=== PATIENT | female | born 1990 | race African-American/Black ===

== ENCOUNTER 2017-06-01 10:40 | Emergency (ER) | payer OTHER ==
[2017-06-01 10:47] VITALS: BMI 40.2
--- NOTE | 2017-06-01 11:19 | PDOC ---
History of Present Illness - General Chief Complaint: Headache Stated Complaint: HEADACH/NAUSEA Time Seen by Provider: 06/01/17 11:03 Past History - Past Medical History Allergies/Adverse Reactions: Allergies Allergy/AdvReac Type Severity Reaction Status Date / Time No Known Allergies Allergy Verified 06/01/17 10:47 Home Medications: Ambulatory Orders Albuterol Sulfate Inhaler - [Ventolin Hfa Inhaler -] 1 - 2 inh PO Q4H 06/01/17 Diphenhydramine HCl [Benadryl -] 25 mg PO HS #10 capsule 06/01/17 Ibuprofen 800 mg PO TID #30 tablet 06/01/17 Ondansetron [Zofran Odt -] 4 mg SL TID #10 od.tablet 06/01/17 COPD: No - Reproductive History (#): 5 Therapeutic (s) & number: Yes (5 elective) - Suicide/Smoking/Psychosocial Hx Smoking History: Never smoked Have you smoked in the past 12 months: No Number of Cigarettes Smoked Daily: 4 Information on smoking cessation initiated: No 'Breaking Loose' booklet given: 02/21/14 Hx Alcohol Use: No Drug/Substance Use Hx: No Substance Use Type: None *Physical Exam - Vital Signs Last Vital Signs Temp Pulse Resp BP Pulse Ox 98.4 F 65 18 129/73 100 06/01/17 10:43 06/01/17 10:43 06/01/17 10:43 06/01/17 10:43 06/01/17 10:43 ED Treatment Course - LABORATORY CBC & Chemistry Diagram: 06/01/17 12:12 06/01/17 12:12 *DC/Admit/Observation/Transfer Diagnosis at time of Disposition: Migraine Qualifiers: Migraine type: other Status migrainosus presence: without status migrainosus Intractability: not intractable Qualified Code(s): G43.809 - Other migraine, not intractable, without status migrainosus - Discharge Dispostion Disposition: HOME Condition at time of disposition: Stable Admit: No - Prescriptions Prescriptions: Ibuprofen 800 mg PO TID #30 tablet Ondansetron [Zofran Odt -] 4 mg SL TID #10 od.tablet - Referrals Referrals: Ronda Brush MD [Primary Care Provider] - Bijan Alarcon DO [Staff Physician] - - Patient Instructions Printed Discharge Instructions: DI for Migraine Additional Instructions: You have a migraine. These can last a couple of days. Please take ibuprofen 800 mg every 8 hours as needed for headaches. I would take them scheduled the next couple of days distally her headache resolves. Your also prescribe Zofran. This is for nausea. You may take this every 8 hours. Please drink plenty of fluids and get plenty of rest. If you need help sleeping at night, take Benadryl 25 mg for [address] not drive after taking it as it may make you sleepy. Please follow- up with neurology within the week if your symptoms do not resolve. A referral has been provided for you Return to the emergency department if you have worsening pain, dizziness, lightheadedness, changes in her vision, or any changes in her symptoms. - Post Discharge Activity Forms/Work/School Notes: Back to Work
[2017-06-01] MEDS ORDERED: SODIUM CHLORIDE 1,000 ML IV STA (11:20)
[2017-06-01] MEDS ORDERED: ONDANSETRON 4 MG/2 ML VIAL IVPUSH ONE (11:20)
[2017-06-01] MEDS ORDERED: METOCLOPRAMIDE HCL INJECTION 10 MG/2 ML VIAL IVPB ONE (11:20)
[2017-06-01] MEDS ORDERED: ONDANSETRON 4 MG/2 ML VIAL ONE (11:52)
[2017-06-01] MEDS ORDERED: METOCLOPRAMIDE HCL INJECTION 10 MG/2 ML VIAL ONE (11:52)
[2017-06-01 12:32] LABS: BASO % 0.8 % (0-2.0); EOS % 0.2 % (0-4.5); HEMATOCRIT 38.5 % (32.4-45.2); HEMOGLOBIN 12.2 GM/dL (10.7-15.3); LYMPH % 35.7 % (8-40); MCHC 31.7 g/dl (32.0-36.0); MEAN CELL VOLUME 81.9 fl (80-96); MEAN PLT VOLUME 9.2 fl (7.5-11.1); MONO % 13.6 % (3.8-10.2); NEUT % 49.7 % (42.8-82.8); PLATELET COUNT 270 K/MM3 (134-434); RDW 13.6 % (11.6-15.6); WHITE BLOOD COUNT 5.5 K/mm3 (4.0-10.0)
[2017-06-01 12:38] LABS: HCG,QUALITATIVE URINE NEGATIVE; URINE APPEARANCE CLEAR; URINE BILIRUBIN NEGATIVE (NEGATIVE); URINE BLOOD NEGATIVE (NEGATIVE); URINE COLOR LTYELLOW; URINE GLUCOSE (UA) NEGATIVE (NEGATIVE); URINE KETONE NEGATIVE (NEGATIVE); URINE LEUK ESTERASE NEGATIVE (NEGATIVE); URINE NITRITE NEGATIVE (NEGATIVE); URINE PROTEIN NEGATIVE (NEGATIVE)
[2017-06-01 12:51] LABS: ALBUMIN 3.6 g/dl (3.4-5.0); ALK PHOS 67 U/L (45-117); ANION GAP 9 (8-16); BILIRUBIN,TOTAL 0.5 mg/dL (0.2-1.0); BLOOD UREA NITROGEN 9 mg/dL (7-18); CALCIUM 9.1 mg/dL (8.5-10.1); CHLORIDE 101 mmol/L (98-107); CO2 27 mmol/L (21-32); CREATININE 0.7 mg/dL (0.55-1.02); GLUCOSE,RANDOM 87 mg/dL (74-106); POTASSIUM 3.7 mmol/L (3.5-5.1); SGOT/AST 16 U/L (15-37); SGPT/ALT 15 U/L (12-78); SODIUM 137 mmol/L (136-145); TOT PROT 7.3 g/dl (6.4-8.2)
[2017-06-01] MEDS ORDERED: KETOROLAC TROMETHAMINE 30 MG/1 ML VIAL IVPUSH ONE (15:17)
[2017-06-01] MEDS ORDERED: KETOROLAC TROMETHAMINE 30 MG/1 ML VIAL ONE (15:24)
[2017-06-01 15:43] VITALS: BP 125/63; PULSE 54; TEMP 98.9
== END 2017-06-01 16:55 | disposition home or self-care (01) ==
LOC: JER 10:40
PROC: 3E033GC Introduction of Other Therapeutic Substance into Peripheral Vein, Percutaneous Approach (ICD-10-PCS; principal; 2017-06-01)
PROC: 3E0333Z Introduction of Anti-inflammatory into Peripheral Vein, Percutaneous Approach (ICD-10-PCS; 2017-06-01)
PROC: 3E033GC Introduction of Other Therapeutic Substance into Peripheral Vein, Percutaneous Approach (ICD-10-PCS; 2017-06-01)
PROC: 3E033GC Introduction of Other Therapeutic Substance into Peripheral Vein, Percutaneous Approach (ICD-10-PCS; 2017-06-01)
DX: G43.809 Other migraine, not intractable, without status migrainosus (principal)
CPT/HCPCS: 36415; 80053; 81003; 84703; 85025; 96374; 96375; 99282-25

== ENCOUNTER 2020-02-13 10:21 | Emergency (ER) | payer SELFPAY ==
[2020-02-13 10:29] VITALS: BP 150/91; PULSE 90; TEMP 98.3; BMI 36.6
--- NOTE | 2020-02-13 10:37 | PDOC ---
History of Present Illness - General Chief Complaint: Cold Symptoms Stated Complaint: COLD SYMPTOMS Time Seen by Provider: 02/13/20 10:33 Past History - Medical History Allergies/Adverse Reactions: Allergies Allergy/AdvReac Type Severity Reaction Status Date / Time No Known Allergies Allergy Verified 02/13/20 10:24 Home Medications: Ambulatory Orders Albuterol Sulfate Inhaler - [Ventolin Hfa Inhaler -] 1 - 2 inh PO Q4H 06/01/17 Diphenhydramine HCl [Benadryl -] 25 mg PO HS #10 capsule 06/01/17 Ibuprofen 800 mg PO TID #30 tablet 06/01/17 Ondansetron [Zofran Odt -] 4 mg SL TID #10 od.tablet 06/01/17 COPD: No - Reproductive History Is Patient Now?: No (#): 5 Therapeutic (s) & number: Yes (5 elective) - Psycho-Social/Smoking History Smoking History: Never smoked Have you smoked in the past 12 months: No Number of Cigarettes Smoked Daily: 4 'Breaking Loose' booklet given: 02/21/14 - Substance Abuse Hx (Audit-C & DAST Scrn) How often the patient has a drink containing alcohol: Never Score: In Men: 4 or > Positive; In Women: 3 or > Positive: 0 Screen Result (Pos requires Nsg. Audit-10AR): Negative In the last yr the pt used illegal drug/Rx for NonMed reason: No Score: Yes response is considered Positive: 0 Screen Result (Positive result requires Nsg. DAST-10): Negative *Physical Exam - Vital Signs Last Vital Signs Temp Pulse Resp BP Pulse Ox 98.3 F 90 18 150/91 100 02/13/20 10:25 02/13/20 10:25 02/13/20 10:25 02/13/20 10:25 02/13/20 10:25 Medical Decision Making - Medical Decision Making 02/13/20 11:06 HPI: COVID-19 CDC guideline data points: The patient is a 29 y/o M presents with COVID-19 with associated symptoms of loss of sense of taste and smell for the past three days. She was tested for COVID yesterday and is waiting on results. ROS: PRESENT: ansomnia NEGATIVE: difficulty breathing, shortness of breath, chest pain, lightheadedness, dizziness, nausea, vomiting and diarrhea. Other 12 point ROS reviewed and negative. Exam: General: NAD, Well-Appearing, Awake, Alert Oriented x3. Vital signs stable. ENT: No rhinorrhea or nasal congestion. Neck: FROM, no midline tenderness. Lungs: Clear to auscultation bilaterally without wheezes, rhonchi or rales. Normal excursion. Patient is able to speak in full sentences. Heart: HR: Regular rhythm, S1-S2 present, no murmurs rubs or gallops. Abdomen: Non-distended. MSK/Extremities: No decrease ROM, No obvious deformities. No obvious cyanosis noted. Neuro: Normal Gait, Cranial Nerves II through XII Grossly Intact. Skin: No obvious rashes, bruising. Color Normal Appearing. Assessment/Plan: ansomnia Patient has a history of this/these comorbidities: asthma No known COVID exposure Pt pending COVID Swab from another facility VSS, afebrile Exam benign DC home with strict precautions. [facility] isolation precuations given. ASSESSMENT: Denies recent travel and known Covid exposure. Discharge - Discharge Information Problems reviewed: Yes Clinical Impression/Diagnosis: Anosmia, Suspected COVID-19 virus infection Condition: Stable Disposition: HOME - Admission No - Follow up/Referral Referrals: [facility] [Provider Group] - Patient Discharge Instructions Patient Printed Discharge Instructions: [facility] - Coronavirus Instructions, [facility]- [facility] COVID-19 Isolation Protocol Additional Instructions: You were seen for your loss of sense of taste and smell and possible Coronavirus (COVID-19) Stay home and isolate until you receive your COVID results. Take Tylenol 650 mg every 6 hours as needed for fever or pain. You may take Robitussin or other aeeq-pcf-prlhblf cough syrup. Follow the dosing instructions on the bottle. Warm tea, honey, and salt water gargles may help your symptoms. Please take precautions and self quarantine for 2 weeks and follow-up with your primary care doctor and the Department of Health. Return to the nearest emergency department for shortness of breath, difficulty breathing, chest pain, or if you have any changes in your symptoms. - Post Discharge Activity Work/Back to School Note: Back to Work
--- OUTSIDE RECORDS SUMMARY | 2020-02-13 10:42 | XMS ---
:1990 Author Organization [facility] Support Name Relationship Address Phone UE Unavailable Unavailable Unavailable JULIO CESAR BLANCHARD MOTHER [address] [phone] [place] [address] ELKIN GARCIA Unavailable [address] [place] [address] Re-disclosure Warning The records that you are about to access may contain information from federally- assisted alcohol or drug abuse programs. If such information is present, then the following federally mandated warning applies: This information has been disclosed to you from records protected by federal confidentiality rules (42 CFR part 2). The federal rules prohibit you from making any further disclosure of this information unless further disclosure is expressly permitted by the written consent of the person to whom it pertains or as otherwise permitted by 42 CFR part 2. A general authorization for the release of medical or other information is NOT sufficient for this purpose. The Federal rules restrict any use of the information to criminally investigate or prosecute any alcohol or drug abuse patient.The records that you are about to access may contain highly sensitive health information, the redisclosure of which is protected by Article 27-F of the [facility] Public Health law. If you continue you may haveaccess to information: Regarding HIV / AIDS; Provided by facilities licensed or operated by the [facility] Office of Mental Health; or Provided by the [facility] Office for People With Developmental Disabilities. If such information is present, then the following [facility] mandated warning applies: This information has been disclosed to you from confidential records which are protected by state law. State law prohibits you from making any further disclosure of this information without the specific written consent of the person to whom it pertains, or as otherwise permitted by law. Any unauthorized further disclosure in violation of state law may result in a fine or [place] health [facility] sentence or both. A general authorization for the release of medical or other information is NOT sufficient authorization for further disclosure. Medications Medication Brand Start Product Dose Route Administrative Pharmacy [facility] Indications Reaction Description Data Name Date Form Instructions Instructions Source(s) Vitamin D UNK 1.0 active Vitamin D e CW3 (Ergocalcif 2018 {caps (Ergocalcife ([place]) 74701 12:00: ule} rol) [address] UNIT 00 AM UNIT Health EDT Care) Insurance Providers Payer name Policy type Policy ID Covered Covered constitution party's Policy P baldo / Coverage constitution party ID relationship to Jones Inf ormation type jones SELF PAY SP INSURANCE Patient Treatment Plan of Care Planned Activity Planned Date Details Description Data Source (s) Vitamin D 07/31/2018 12:00:00 eCW3 ([place] (Ergocalciferol) [address] AM EDT Healt Care) UNIT
== END 2020-02-13 11:30 ==
LOC: JER 10:21
DX: R43.0 Anosmia (principal)
CPT/HCPCS: 99283-25

== ENCOUNTER 2020-06-19 15:23 | Emergency (ER) | payer OTHER ==
[2020-06-19 15:29] VITALS: TEMP 98.2; BMI 30.2
[2020-06-19] MEDS ORDERED: SODIUM CHLORIDE 0.9% 500 ML INFUS.BAG IV ONE (16:04)
[2020-06-19] MEDS ORDERED: ONDANSETRON 4 MG/2 ML VIAL IVPUSH ONE (16:04)
[2020-06-19] MEDS ORDERED: ONDANSETRON 4 MG/2 ML VIAL ONE (16:12)
[2020-06-19 17:16] LABS: HEMATOCRIT 37.1 % (32.4-45.2); HEMOGLOBIN 12.4 GM/dL (10.7-15.3); MCH 27.7 pg (25.7-33.7); MCHC 33.4 g/dl (32.0-36.0); MEAN CELL VOLUME 82.8 fl (80-96); MEAN PLT VOLUME 8.8 fl (7.5-11.1); PLATELET COUNT 324 K/MM3 (134-434); RBC 4.48 M/mm3 (3.60-5.2); RDW 13.8 % (11.6-15.6); WHITE BLOOD COUNT 6.4 K/mm3 (4.0-10.0)
[2020-06-19 17:23] LABS: EPI CELLS >36 /uL (0-25.1); HYALINE CASTS 9 /uL (0-3.1); PH,URINE 5.5 (5.0-8.0); URINE APPEARANCE CLOUDY; URINE BACTERIA 376 /uL (0-1359); URINE BILIRUBIN 1+ (NEGATIVE); URINE COLOR DK YELLOW; URINE GLUCOSE (UA) NEGATIVE (NEGATIVE); URINE KETONE 1+ (NEGATIVE); URINE LEUK ESTERASE TRACE (NEGATIVE); URINE NITRITE NEGATIVE (NEGATIVE); URINE PROTEIN 1+ (NEGATIVE); URINE RBC 11 /uL (0-23.9); URINE WBC 15 /uL (0-25.8)
[2020-06-19 17:43] LABS: POTASSIUM 4.1 mmol/L (3.5-5.1)
[2020-06-19 17:44] LABS: CALCIUM 9.8 mg/dL (8.5-10.1)
[2020-06-19 17:46] LABS: ALBUMIN 4.1 g/dl (3.4-5.0); BLOOD UREA NITROGEN 8.8 mg/dL (7-18)
[2020-06-19 17:49] LABS: CREATININE 0.7 mg/dL (0.55-1.3)
[2020-06-19 17:51] LABS: BILIRUBIN,TOTAL 0.4 mg/dL (0.2-1); TOT PROT 8.2 g/dl (6.4-8.2)
[2020-06-19 18:00] LABS: ANISOCYTOSIS 1+; MACROCYTOSIS 0; OVALOCYTE 1+; PLATELET ESTIMATE NORMAL
[2020-06-19] MEDS ORDERED: METOCLOPRAMIDE HCL 10 MG TABLET (FP) PO ONE ×2 (18:21→18:24)
[2020-06-19 18:46] VITALS: BP 135/76; PULSE 65
== END 2020-06-19 19:07 | disposition home or self-care (01) ==
LOC: JER 15:23
PROC: 3E033GC Introduction of Other Therapeutic Substance into Peripheral Vein, Percutaneous Approach (ICD-10-PCS; principal; 2020-06-19)
DX: O26.891 Other specified pregnancy related conditions, first trimester (principal); R10.30 Lower abdominal pain, unspecified; Z3A.08 8 weeks gestation of pregnancy
CPT/HCPCS: 36415; 76817-TC; 80053; 81003; 84702; 85025; 86850; 86900; 86901; 87077; 87086; 87186; 99284-25

== ENCOUNTER 2021-01-11 22:30 | Inpatient (IN) | payer OTHER ==
[2021-01-12] MEDS ORDERED: AMPICILLIN - 2 GM in SODIUM CHLORIDE 100 ML IVPB ONE
[2021-01-12] MEDS ORDERED: DEXTROSE 5%-LACTATED RINGERS 1,000 ML IV SCH (00:15)
[2021-01-12] MEDS ORDERED: AMPICILLIN SODIUM 2 GM VIAL ONE (00:31)
[2021-01-12 01:14] LABS: HEMOGLOBIN 10.7 GM/dL (10.7-15.3); RBC 3.89 M/mm3 (3.60-5.2); WHITE BLOOD COUNT 7.2 K/mm3 (4.0-10.0)
[2021-01-12 01:16] LABS: HEMATOCRIT 32.3 % (32.4-45.2); MCH 27.5 pg (25.7-33.7); MCHC 33.1 g/dl (32.0-36.0); MEAN CELL VOLUME 83.1 fl (80-96); RDW 13.9 % (11.6-15.6)
[2021-01-12 01:17] VITALS: BMI 40.2
[2021-01-12 01:17] LABS: MEAN PLT VOLUME 8.9 fl (7.5-11.1); NEUT % 65.7 % (42.8-82.8); PLATELET COUNT 263 10^3/uL (134-434)
[2021-01-12 01:18] LABS: LYMPH % 25.1 % (8-40)
[2021-01-12 01:19] LABS: BASO % 0.2 % (0-2.0); EOS % 1.2 % (0-4.5); MONO % 7.8 % (3.8-10.2)
[2021-01-12 01:33] LABS: BLOOD UREA NITROGEN 7.4 mg/dL (7-18); CREATININE 0.6 mg/dL (0.55-1.3)
[2021-01-12 01:34] LABS: CALCIUM 9.2 mg/dL (8.5-10.1)
[2021-01-12 01:51] LABS: ACTIVATED PTT 26.3 SECONDS (25.2-36.5); INR 0.9 (0.83-1.09); PROTHROMBIN TIME (PATIENT) 11.1 SEC (9.7-13.0)
[2021-01-12] MEDS ORDERED: AMPICILLIN SODIUM 1 GM VIAL ONE ×3 (04:16→12:20)
[2021-01-12] MEDS: AMPICILLIN - 1 GM in SODIUM CHLORIDE 100 ML IVPB SCH ×4 (04:20→16:00)
[2021-01-12 04:26] LABS: URINE AMPHETAMINES NEGATIVE (NEGATIVE)
[2021-01-12 04:27] LABS: COCAINE, UR NEGATIVE (NEGATIVE); METHADONE, UR NEGATIVE (NEGATIVE); OPIATES, URI NEGATIVE (NEGATIVE); PHENCYCLIDINE,URINE NEGATIVE (NEGATIVE); URINE BARBITURATES NEGATIVE (NEGATIVE); URINE BENZODIAZEPINES NEGATIVE (NEGATIVE)
[2021-01-12] MEDS ORDERED: OXYTOCIN 30 UNITS in 0.9% NS 30 UNIT/500 ML INFUS.BAG IVPB SCH (06:45)
[2021-01-12] MEDS ORDERED: OXYTOCIN 30 UNITS in 0.9% NS 30 UNIT/500 ML INFUS.BAG IVPB ONE (09:13)
[2021-01-12] MEDS ORDERED: PROMETHAZINE HCL 25 MG/1 ML VIAL IVPUSH ONE (12:11)
[2021-01-12] MEDS ORDERED: BUTORPHANOL TARTRATE 1 MG/ML VIAL IVPB ONE (12:11)
[2021-01-12] MEDS ORDERED: PROMETHAZINE HCL 25 MG/1 ML VIAL ONE (12:22)
[2021-01-12] MEDS ORDERED: BUTORPHANOL TARTRATE 1 MG/ML VIAL ONE (12:22)
[2021-01-12] MEDS ORDERED: LIDOCAINE HCL 1% PRESERVATIVE FREE - 30ML VIAL ONE (16:53)
[2021-01-12] MEDS ORDERED: SUCCINYLCHOLINE CHLORIDE 200 MG/10 ML SYRINGE ONE (16:55)
[2021-01-12] MEDS ORDERED: MINERAL OIL/PETROLATUM,WHITE 3.5 GM TUBE ONE (17:08)
[2021-01-12] MEDS ORDERED: MIDAZOLAM HCL 2 MG/2 ML SINGLE DOSE VIAL ONE (17:09)
[2021-01-12] MEDS ORDERED: SENNOSIDES/DOCUSATE COMBO (SENNA PLUS) TABLET (UD) PO PRN (17:55)
[2021-01-12] MEDS ORDERED: IBUPROFEN 800 MG/8 ML IJ IVPB PRN (17:55)
[2021-01-12] MEDS ORDERED: ONDANSETRON 4 MG/2 ML VIAL IVPB PRN (17:55)
[2021-01-12] MEDS ORDERED: ACETAMINOPHEN 1000 MG/100 ML VIAL (NON FORMULARY) IVPB PRN (17:55)
[2021-01-12] MEDS ORDERED: METHYLERGONOVINE MALEATE 0.2 MG TABLET (FP) PO PRN (17:55)
[2021-01-12] MEDS ORDERED: OXYTOCIN 20 UNITS in 0.9% NS 20 UNIT/1,000 ML INFUS.BAG IV SCH (18:00)
[2021-01-12] MEDS ORDERED: ceFAZolin SODIUM 1 GM VIAL ONE (18:01)
[2021-01-12] MEDS ORDERED: OXYTOCIN 10 UNIT/ML 10ML MDV ONE (18:01)
[2021-01-12] MEDS ORDERED: KETOROLAC TROMETHAMINE 30 MG/1 ML VIAL ONE (18:01)
[2021-01-12] MEDS ORDERED: ACETAMINOPHEN INJECTION 100 ML IVPB ONE (18:10)
[2021-01-12] MEDS ORDERED: OXYTOCIN 20 UNITS in 0.9% NS 20 UNIT/1,000 ML INFUS.BAG IV ONE (18:10)
[2021-01-12] MEDS ORDERED: PROMETHAZINE HCL 25 MG/1 ML VIAL IVPUSH PRN (18:11)
[2021-01-12] MEDS ORDERED: ACETAMINOPHEN 1000 MG/100 ML VIAL (NON FORMULARY) IVPB ONE (18:12)
[2021-01-12] MEDS ORDERED: HYDROmorphone *PCA* 10MG/50ML DISP.SYRIN PCA SCH (18:15)
[2021-01-12] MEDS ORDERED: LACTATED RINGERS SOLUTION 1,000 ML IV SCH (18:15)
[2021-01-12] MEDS: CEFAZOLIN 2 GM in DEXTROSE 5%-WATER - 50 ML IVPB SCH (18:31)
[2021-01-13] MEDS: CEFAZOLIN 2 GM in DEXTROSE 5%-WATER - 50 ML IVPB SCH (01:21)
[2021-01-13 08:02] LABS: BASO % 0.2 % (0-2.0); EOS % 0.5 % (0-4.5); HEMATOCRIT 26.9 % (32.4-45.2); HEMOGLOBIN 9.1 GM/dL (10.7-15.3); LYMPH % 19.4 % (8-40); MCH 28.6 pg (25.7-33.7); MCHC 33.8 g/dl (32.0-36.0); MEAN CELL VOLUME 84.6 fl (80-96); MEAN PLT VOLUME 8.7 fl (7.5-11.1); MONO % 10.4 % (3.8-10.2); NEUT % 69.5 % (42.8-82.8); PLATELET COUNT 228 10^3/uL (134-434); RBC 3.18 M/mm3 (3.60-5.2); RDW 14.1 % (11.6-15.6); WHITE BLOOD COUNT 10.3 K/mm3 (4.0-10.0)
[2021-01-13] MEDS: SIMETHICONE 80 MG TAB.CHEW (FP) PO PRN ×2 (14:47→21:28)
[2021-01-13] MEDS: oxyCODONE HCL 5 MG TABLET PO PRN ×2 (14:47→21:28)
[2021-01-13] MEDS ORDERED: BISACODYL 10 MG SUPP.RECT RC PRN (17:55)
[2021-01-13] MEDS: ACETAMINOPHEN 325 MG TABLET (FP) PO PRN (21:27)
[2021-01-14] MEDS: oxyCODONE HCL 5 MG TABLET PO PRN (01:49)
[2021-01-14] MEDS: SIMETHICONE 80 MG TAB.CHEW (FP) PO PRN (01:49)
[2021-01-14] MEDS: IBUPROFEN 600 MG TABLET (FP) PO PRN ×2 (01:49→11:18)
[2021-01-14] MEDS: ACETAMINOPHEN 325 MG TABLET (FP) PO PRN (01:51)
[2021-01-14 10:21] VITALS: BP 133/85; PULSE 81; TEMP 98.3
== END 2021-01-14 13:00 | disposition home or self-care (01) | DRG 540 ==
LOC: JDEL 22:30 → JLDR 23:10 → J3W 01-12 21:04
PROVIDERS: ADMIT Specialist; ATTEND Specialist
PROC: 10D00Z1 Extraction of Products of Conception, Low, Open Approach (ICD-10-PCS; principal; 2021-01-12)
DX: O36.8330 Maternal care for abnormalities of the fetal heart rate or rhythm, third trimester, not applicable or unspecified (principal); O62.1 Secondary uterine inertia; O42.12 Full-term premature rupture of membranes, onset of labor more than 24 hours following rupture; Z3A.38 38 weeks gestation of pregnancy; O34.13 Maternal care for benign tumor of corpus uteri, third trimester; O69.81X0 Labor and delivery complicated by cord around neck, without compression, not applicable or unspecified; Z37.0 Single live birth
CPT/HCPCS: 36415; 80048; 80053; 80307; 82570; 82575; 84156; 84550; 85025; 85027; 85610; 85730; 86780; 86850; 86900; 86901; 88307-TC; 94010; C9803; J0131; U0003; U0005

== ENCOUNTER 2021-12-13 20:18 | Emergency (ER) | payer OTHER ==
[2021-12-13 20:31] VITALS: BP 146/82; PULSE 78; RESP 19; BMI 40.8
== END 2021-12-13 21:46 | disposition home or self-care (01) ==
LOC: JERFT 20:18
DX: R21 Rash and other nonspecific skin eruption (principal)
CPT/HCPCS: 99281-25

== ENCOUNTER 2024-04-16 10:34 | Emergency (ER) | payer OTHER ==
[2024-04-16 10:40] VITALS: BP 135/86; PULSE 88; RESP 18; TEMP 98.4; BMI 39.3
[2024-04-16] MEDS ORDERED: ACETAMINOPHEN 500 MG TABLET (FP) ONE (11:20)
[2024-04-16] MEDS ORDERED: IBUPROFEN 600 MG TABLET (FP) PO ONE (11:20)
[2024-04-16] MEDS: IBUPROFEN 600 MG TABLET (FP) PO ONE (11:22)
[2024-04-16] MEDS: ACETAMINOPHEN 500 MG TABLET (FP) PO ONE (11:23)
== END 2024-04-16 11:25 | disposition home or self-care (01) ==
LOC: JER 10:34 → JERFT 10:34
DX: R22.0 Localized swelling, mass and lump, head (principal); K04.7 Periapical abscess without sinus; K08.89 Other specified disorders of teeth and supporting structures
CPT/HCPCS: 99283-25